=== PATIENT | female | born 1980 | race Caucasian/White ===

== ENCOUNTER 2016-07-24 05:44 | Inpatient (IN) | payer OTHER ==
[~2016-07-24] VITALS: Ht 167.6 cm; Wt 92.1 kg
[~2016-07-24 05:44] MED LIST: Docusate Sodium PO; IBUP-1827 PO; Oxycodone/Acetaminophen PO; PREN1TAB80 PO
--- NOTE | 2016-07-24 06:06 | HP ---
[address] [address] HISTORY AND PHYSICAL PATIENT: KELLY GUTIERREZ : 1980 MR#: [id number] ADMIT: 07/24/2016 JOB ID: [id number] [facility] NOTE: DATE: 07/24/2016 HISTORY OF PRESENT ILLNESS: The patient is a 36-year-old, AB0, woman, followed prenatally at [facility], see record for details. Due date is July 24, 2016, placing the patient at 40 weeks of gestation on date of admission. She has previously undergone section for breech presentation at term, with baby weighing 7 pounds 5 ounces, in 2013. During this , the patient has considered trial of labor versus repeat section, yet ultimately I recommended repeat section at term in light of macrosomia as suggested on ultrasound at 39 weeks of gestation. biometrics were consistent, and estimated weight at 4093 g. The patient and I discussed the information suggesting that for a woman with no previous vaginal delivery, the likelihood of successful TOLAC falls to less than or equal to 50% when weight increases above 4000 g. Results were discussed with the observation that women attempting a TOLAC with no prior vaginal delivery and weight greater than 4000 g may have a higher likelihood of adverse obstetrical outcomes such as uterine rupture. For example, one study suggested 3.6% uterine rupture rate in this instance. The patient understood these things, and ultimately made the decision to proceed with section, which has been scheduled for July 24, 2016. She has understood risks of section which include bleeding, infection, injury to the urinary tract and bowel, anesthetic risks, potential wound problems, potential postoperative pain, and other possibilities. She has had all of her questions answered, no guarantees have been stated or implied, and she has signed informed consent for surgery. In summary, then, the patient, after considering pros and cons, and the risks of trial of labor versus repeat section, the latter has ultimately been chosen as delivery modality, particularly in light of suggested macrosomia per formal ultrasound a week prior to delivery. She will be admitted to [facility] on July 24, 2016, on her due date, for repeat section, although no tubal ligation. PHYSICAL EXAMINATION: On admission, height 66-1/2 inches, last weight and blood pressure in the office 199 pounds and 120/74. Neck: No thyromegaly. Lungs: Clear to auscultation and percussion. Heart: Regular in rate and rhythm. Abdomen: Fundal height 42.5 cm (consistent with suggested macrosomia), positive heartbeat. Vertex presentation. Pelvic examination: Cervical check on July 20, 2016, identified closed and thick cervix. IMPRESSION: 1. A 40-week . 2. Prior section for breech, now with scheduled repeat section on July 24, 2016, in the setting of sonography-suggested macrosomia. 3. Negative group B strep status, rubella immune status, Rh positive. 4. Abnormal 1 hour glucose challenge test, although technically normal 3 hour glucose tolerance test (fasting blood sugar 91, one, two and three hour values normal). 5. Up to date with Tdap and flu shot. 6. Advanced maternal age, note declined genetic testing, although level two sonogram negative. 7. Crohn's disease since age 21, past-reported flare ups with stress, note that Crohn's condition has gone into remission during this . 8. History of mild depression that was "stressed-related," no medication given. 9. Surgical history. a. Reproductive history-prior section, now admission for repeat . b. Tonsillectomy. c. [place] teeth extraction. 10. AMOXICILLIN allergy-rash, although no breathing difficulties or signs or symptoms of anaphylaxis. The patient also believes that she might have used Keflex in the past without a problem. 11. Increased weight. 12. Plans for Mirena intrauterine device for contraception . 13. Family history of diabetes, hypertension, Crohn's disease (father), thyroid disease (mother), "blood clots in veins" (grandmother, mother, grandmother), cervical cancer (aunt), and oral cancer (aunt). PLAN: The patient will be admitted to [facility] on July 24, 2016, on which day she will undergo repeat section under spinal anesthesia. Cefazolin will be given for antibiotic prophylaxis. The patient requests that baby stay in the section room with her during surgery.
[2016-07-24] MEDS ORDERED: Nalbuphine 10 mg/mL Inj IV PRN (07:00)
[2016-07-24] MEDS ORDERED: EPHEDrine Sulfate 50 mg/mL Inj IVPUSH PRN (07:00)
[2016-07-24] MEDS ORDERED: fentaNYL-PF 50 mCg/mL 2 mL Inj IVPUSH PRN (07:00)
[2016-07-24] MEDS ORDERED: Morphine PF 1 mg/mL 10 mL Inj INTRATHEC ONE (07:00)
[2016-07-24] MEDS ORDERED: Atropine 0.4 mg/mL Inj IV PRN (07:00)
[2016-07-24] MEDS ORDERED: Sodium Citrate-Citric Acid 15 mL Solution ONE (07:21)
--- NOTE | 2016-07-24 07:24 | PCM.HPANE ---
Patient Data Date of Service: Jul 24, 2016 Surgeon Admitting Provider:Faustino Menendez MD Attending Provider:Faustino Menendez MD Primary Care Physician:Tsering Other Provider:Sam Guaman Anesthesia Reason for Visit Repeat Repeat Ht/WT & BMI Body Mass Index Allergies Coded Allergies: amoxicillin (Verified Allergy, Unknown, HIVES, 03/09/14) Diabetes History Hx Diabetes?: No Medications Hypertension Medication: No Home Meds Incl Beta Roxy: No Active Scripts Vits W-Ca,Fe,FA(<1Mg) ( Vitamins)1 Each Tablet1 Each PO DAILY # 30 TABLET Prov:Jacqueline Love MD 03/11/14 Ibuprofen 600 Mg [id number] Mg PO Q6 PRN For Pain #40 TABLET Ref 0 Prov:Jacqueline Love MD 03/11/14 [Oxycodone/Acetaminophen] (Percocet 5-325)1 TAB TABLET No Conflict Check1-2 Tab PO Q4-6H PRN For Pain #50 TABLET Prov:Jacqueline Love MD 03/11/14 [Docusate Sodium] (Colace)100 MG CAPSULE No Conflict [id number] Mg PO BID PRN For Constipation #30 CAPSULE Prov:Jacqueline Love MD 03/11/14 History History of ENT Problems?: No Hx of Heart Problems?: No Hx of Respiratory Problem?: No Hx Neurologic Problems?: No Smoking Status: Former Smoker Stop/Bang Risk Assessment Category Category 1A: Patient has history of documented sleep apnea, and HAS NOT received any narcotic, sedative or anesthesia administration during this stay. Category 1B: Patient has history of documented sleep apnea, and HAS received any narcotic , sedative or anesthesia administration during this stay Category 2: Patient has SUSPECTED Obstructive Sleep Apnea, and HAS received any narcotic , sedative or anesthesia administration during this stay. Category 3: Patient has SUSPECTED Obstructive Sleep Apnea and HAS NOT received narcotic, sedative or anesthesia administration during this stay. Category 4: Outpatient in Procedural Areas with known sleep apnea or who screen positive for High Risk via the STOP/BANG questionnaire. Exam Exam Vital Signs 134/86 37.0 20 105 98% General Appearance: Alert, Oriented X3 HEENT/AIRWAY: MP 2 Lungs: Clear to Auscultation Heart: Regular Rate/Rhythm Plan Impression Patient chart reviewed, patient interviewed and anesthestic plan with risks, benefits, and alternatives discussed, and informed consent obtained. ASA Physical Status: ASA2 Mod Systemic Disease Anesthetic Plan: SAB Bene/Risks/Altern/Consents: Yes HP Complete Prior to Induction: Yes Ramsey Bowers MD Jul 24, 2016 06:56
[2016-07-24] MEDS ORDERED: CeFAZolin Inj 2 GM in IV Premix 1 EACH IV ONE (07:31)
[2016-07-24] MEDS ORDERED: Sodium Citrate-Citric Acid 15 mL Solution PO ONE (07:32)
[2016-07-24 07:39] LABS: Mean Corpuscular Hemoglobin 31.9 pg (27.0-35.0); Mean Corpuscular Volume 96.6 fL (81-100)
[2016-07-24] MEDS ORDERED: Oxytocin 30 Units/500 mL LR 30 UNITS in IV Premix 1 EACH IV PRN (07:50)
[2016-07-24] MEDS ORDERED: Influenza (Adult) Vaccine 0.5 mL Syringe IM ONE (07:50)
[2016-07-24] MEDS ORDERED: Measles-Mumps-Rubella Vaccine 0.5 mL Inj SUBQ ONE (07:50)
[2016-07-24] MEDS ORDERED: LANOlin HPA 7 Gm Ointment TOPICAL PRN (07:50)
[2016-07-24] MEDS ORDERED: Carboprost 250 mCg/mL Inj IM PRN (07:50)
[2016-07-24] MEDS ORDERED: Methylergonovine 0.2 mg/mL Inj IM PRN (07:50)
[2016-07-24] MEDS ORDERED: Oxytocin 10 Unit/mL Inj IM PRN (07:50)
[2016-07-24] MEDS ORDERED: Sodium Chloride LOK Flush 10 mL Syringe IVFLUSH PRN (07:50)
[2016-07-24] MEDS ORDERED: Hemorrhage Kit, Post Partum XX ONE (07:50)
[2016-07-24] MEDS ORDERED: TdaP Vaccine 0.5 mL Inj IM ONE (07:50)
[2016-07-24] MEDS ORDERED: hydrOXYzine Pamoate 25 mg Capsule PO PRN (07:50)
[2016-07-24] MEDS ORDERED: Bupivacaine-MPF 0.75% 30 mL Inj ONE (09:18)
[2016-07-24] MEDS ORDERED: Phenylephrine/NS 100 mCg/mL 10 mL Syringe IVPUSH ONE (09:18)
[2016-07-24] MEDS ORDERED: Ondansetron 2 mg/mL 2 mL Inj ONE (09:18)
[2016-07-24] MEDS ORDERED: Morphine PF 1 mg/mL 10 mL Inj ONE (09:18)
[2016-07-24] MEDS ORDERED: Oxytocin 10 Unit/mL Inj ONE (09:18)
[2016-07-24] MEDS: Acetaminophen IV 1,000 MG in IV Premix 1 EACH IV PRN ×2 (10:44→17:06)
[2016-07-24] MEDS: Lactated Ringer's 1,000 ML IV SCH ×6 (12:03→23:47)
--- NOTE | 2016-07-24 12:25 | PCM.ANEP1 ---
Post Anesthesia Phase 1 PACU Phase 1 Assessment Date of Service: Jul 24, 2016 Vital Signs 117/74 86 18 99% 36 Anesthetic Administered: SAB Level of Alertness: Awake, talking ROSS's with Equal Strength: No Pain: No Pain Scale Score: 0 Nausea or Vomiting: No Cardiovascular Function and Hy: Yes Lungs: Clear to Auscultation Ramsey Bowers MD Jul 24, 2016 12:25
[2016-07-24] MEDS: CeFAZolin Inj 2 GM in IV Premix 1 EACH IV SCH (16:26)
[2016-07-25] MEDS: Acetaminophen IV 1,000 MG in IV Premix 1 EACH IV PRN (00:52)
[2016-07-25] MEDS: CeFAZolin Inj 2 GM in IV Premix 1 EACH IV SCH (01:22)
[2016-07-25] MEDS: oxyCODONE-Acetamin 5-325 mg Tablet PO PRN ×4 (06:38→20:34)
[2016-07-25 06:40] LABS: Mean Corpuscular Hemoglobin 31.4 pg (27.0-35.0); Mean Corpuscular Volume 97.7 fL (81-100)
[2016-07-25] MEDS: Lactated Ringer's 1,000 ML IV SCH ×6 (07:35→23:47)
--- NOTE | 2016-07-26 00:19 | OP ---
[address] [address] OPERATIVE REPORT PATIENT: KELLY GUTIERREZ : 1980 MR#: [id number] ADMIT: 07/24/2016 JOB ID: [id number] DATE OF SURGERY: 07/24/2016 SURGEON: Faustino Menendez MD. CODING SUPPORT SPECIALIST: Dewayne Espitia MD. ANESTHESIA: Spinal. PREOPERATIVE DIAGNOSIS(ES): 1. Term . 2. Prior section, for scheduled repeat section. 3. Suspected macrosomia on the basis of recent formal ultrasound suggesting greater than 4000 g fetus. POSTOPERATIVE DIAGNOSIS(ES): 1. Same as Preoperative Diagnoses PROCEDURE PERFORMED: Repeat low transverse section. FINDINGS AT SURGERY: Lower uterine segment was rather thin, particularly at the site of the prior uterine incision. Amniotic fluid was clear. Fetus was in vertex presentation, and was active and crying and vigorous on the operative field. Note that ovaries and fallopian tubes were normal in appearance. Note that overall blood loss was in the 450 cc range, and there was no obvious internal bleeding occurring at any site by procedure's close. Instrument, needle and sponge counts were all found to be correct at multiple times during the case. It certainly is anticipated that mother and baby will do very well during the timeframe. Note that their decision to proceed with section (rather than a trial of labor) appears to have been a good decision in light of relatively large baby as expected, and there also was relatively thin uterine wall as identified at surgery. For any future deliveries, would recommend section now that the patient has had two surgical deliveries. PROCEDURE: The patient was taken into the operating room, and she then moved onto the operating table and was positioned for Spinal Anesthesia. After this was accomplished, patient was then repositioned into the supine position, and then left lateral tilt position. [place] Cathether was then placed, and abdomen was then prepped and draped in the usual sterile fashion. Appropriate time-out was then taken. Pfannenstiel incision was then made in the lower abdomen, and carried through skin, subcutaneous tissues, and fascial layer. Rectus muscles were then from overlying fascia using blunt and sharp dissection, also cautery where needed to effect complete hemostasis. Rectus muscles were then in the midline using blunt and sharp dissection, and the peritoneal cavity was then entered. Transverse incision was then made in the thin lower uterine segment wall, down to the amniotic sac which was then ruptured with return of clear fluid. Head was then delivered, followed directly by the shoulders, body, and extremities. Baby was active and crying and vigorous, thus 1 minute was allowed to pass before cord clamping and cutting, which were then accomplished. Baby was taken to the warmer for further management. Cord blood was obtained for routine studies. Placenta and membranes were then expelled intact from the uterine cavity, as the uterus was massaged. Uterine cavity was then gauze curettaged, and the cervix was checked to insure that it was slightly open. Intravenous Pitocin Infusion was continued along with ongoing uterine massage. The uterine incision was then closed in a running locking manner using #1 Chromic suture. An overlying imbricating running layer of #1 Chromic suture was then placed where possible for additional uterine incisional support, noting thin lower uterine segment wall. Uterus at this point was remaining well-contracted, and the bladder was inspected without any bleeding sites noted. Ovaries and tubes were then inspected, and the posterior cul de sac area was then irrigated and suctioned of blood, clots, and fluid. Uterus was then returned to the abdominal cavity, with final check of uterine incision demonstrating complete hemostasis once again. Instrument, needle, and sponge counts were all found to be correct. Rectus muscles were then drawn together across the midline with interrupted stitches of #1 Chromic suture. The subfascial plane was inspected, and cautery applied where needed. The fascial incision was then closed with #1 PDS in a running manner, using great care to bury the knots on each end. Subcutaneous tissues were then irrigated, cautery applied where needed, and the skin incision was then closed with kevin. A pressure dressing was then applied. The uterus was then massaged and expressed of blood and clots. Procedure was complete. Instrument, needle, and sponge counts were once again found to be correct. Patient was taken to her room for recovery. ESTIMATED BLOOD LOSS: 450 mls COMPLICATIONS: None PROGNOSIS: Good Faustino Menendez MD [facility]
[2016-07-26] MEDS: oxyCODONE-Acetamin 5-325 mg Tablet PO PRN ×3 (01:32→10:05)
[2016-07-26] MEDS: Lactated Ringer's 1,000 ML IV SCH ×2 (07:35→07:47)
--- NOTE | 2016-07-26 07:47 | PROG NOTE ---
[address] [address] PROGRESS NOTE PATIENT: KELLY GUTIERREZ : 1980 MR#: [id number] ADMIT: 07/24/2016 JOB ID: [id number] DATE: 07/25/2016 SUBJECTIVE: The patient underwent repeat section in the morning of July 24, 2016. During the /postoperative timeframe into July 25, 2016 she has done well with stable vitals, afebrile, with reasonable bleeding and pain management, ambulating and voiding, without leg pain or shortness of breath, and handling baby well. Postoperative hemoglobin was 10.9. Platelets were low on admission at 99 and then dropped to 86 on the first postoperative/ day, not a surprise or unreasonable drop. Suspect gestational thrombocytopenia. PLAN: 1. Continue postoperative/ care. 2. Recheck platelet count on the 2nd postoperative/ day, suspect stability, to increase in time. Probably will be able to go home on July 26, 2016.
--- NOTE | 2016-07-26 10:05 | PCM.DIOB ---
Obstetrical Disch Instruction Dates of Hospitalization Date of Hospital Admission Jul 24, 2016 at 05:44 Providers Admitting Physician: Faustino Menendez MD Primary Care Physician: Nopcp Attending Physician: Faustino Menendez MD Discharge Diagnosis Problems: (1) Delivery by elective caesarean section Onset Date: 03/09/2014 Status: Acute ICD Code: O82 (2) delivery, delivered, current hospitalization Onset Date: 03/09/2014 Status: Acute ICD Code: O82 Diet Discharge Diet: No restrictions Activity Discharge Activity-General: Pelvic Rest for 6 weeks, No lifting >10 pounds for 4-6 weeks Dressing and Incisional Care Hygiene: May shower, DO NOT soak incision under water Follow Up Plan Follow-up appointment: Weeks (Follow up in 2 and in 6 weeks at [facility]. ) Call your provider for: Fever or Chills, Shortness of breath, Heavy vaginal bleeding, Red painful breasts Faustino Menendez MD Jul 26, 2016 10:05
[2016-07-26] MEDS ORDERED: OXYC1TAB24 PO (10:08)
[2016-07-26] MEDS ORDERED: DOCU-41 PO (10:08)
[2016-07-26] MEDS ORDERED: IBUP-1827 PO (10:08)
[2016-07-26 11:42] VITALS: BP 120/65; PULSE 88; RESP 18
--- NOTE | 2016-08-01 00:14 | DIS ---
[address] [address] DISCHARGE SUMMARY PATIENT: KELLY GUTIERREZ : 1980 MR#: [id number] ADMIT: 07/24/2016 JOB ID: [id number] DIS: 07/26/2016 DISCHARGE DIAGNOSES: 1. Term , delivered. 2. Prior section, now status post repeat section. PROCEDURES PERFORMED: 1. Spinal anesthesia. 2. Repeat low transverse section. HOSPITAL COURSE: This patient was admitted to [facility] on July 24, 2016, on which day she underwent repeat section. During the timeframe, the patient did well, with stable vitals, afebrile, with reasonable bleeding and pain management, ambulating, voiding, and handling the baby well. She had no leg pain or shortness of breath. She had no incisional problems. hemoglobin was 10.9. Note that platelets preop were 99, and then dropped to 86 and then 83, where apparent stabilization was occurring. The low platelets were felt to be related to gestational thrombocytopenia. The patient requested discharge to home on the second postoperative day/second day, i.e., on July 26, 2016. DISCHARGE PROGRAM: The patient will call p.r.n., yet otherwise she will follow up at two and at six weeks for /postoperative checkups at [facility]. She will observe pelvic rest and not do any heavy lifting for six weeks. Tayler were discontinued prior to discharge, using benzoin and 1/2-inch Steri-Strips. The patient was agreeable to checking platelet count again in a few days. She also was given discharge prescriptions for pain medication as well as stool softener. She will also use vitamin daily while nursing, having supply at home.
== END 2016-07-26 11:50 | disposition home or self-care (01) | DRG 766 ==
LOC: FBC 05:44 → EDSTATUS 10:15
PROVIDERS: ADMIT Obstetrics & Gynecology; ATTEND Obstetrics & Gynecology
PROC: 10D00Z1 Extraction of Products of Conception, Low, Open Approach (ICD-10-PCS; principal; 2016-07-24 07:15)
DX: O34.211 Maternal care for low transverse scar from previous cesarean delivery (principal); O36.63X0 Maternal care for excessive fetal growth, third trimester, not applicable or unspecified; Z3A.40 40 weeks gestation of pregnancy; Z37.0 Single live birth